=== PATIENT | female | born 1960 | race Asian ===

== ENCOUNTER 2023-12-11 18:18 | Emergency (ER) | payer OTHER ==
[~2023-12-11] VITALS: Ht 165.1 cm; Wt 70.4 kg
[2023-12-11 18:24] VITALS: O2SAT 100
[2023-12-11 19:27] LABS: BASOPHILS % 0.6 % (0.0-2.0); HEMOGLOBIN. 13.5 g/dL (12.0-16.0); LYMPHOCYTES % 14.9 % (20.0-50.0); MEAN CORPUSCULAR HGB CONC 33.9 g/dL (31.0-37.0); MEAN CORPUSCULAR VOLUME 91.4 fL (81.0-99.0); MEAN PLATELET VOLUME 7.5 fl (7.4-10.4); MONOCYTES % 3.9 % (2.0-8.0); NEUTROPHILS % 80.6 % (40.0-76.0); PLATELET 273 x1000/uL (130-400); RED BLOOD CELL COUNT 4.37 mill/uL (4.2-5.4)
[2023-12-11 19:33] LABS: CHLORIDE 108 mEq/L (98-107); POTASSIUM 3.9 mEq/L (3.5-5.1); SODIUM 138 mEq/L (136-145)
[2023-12-11 19:34] LABS: CALCIUM 9.8 mg/dL (8.7-10.4); CARBON DIOXIDE 23 mEq/L (21-32)
[2023-12-11 19:38] LABS: INR 0.9; PROTHROMBIN TIME 10.3 sec (9.6-11.0)
[2023-12-11 19:39] LABS: CREATININE 0.8 mg/dL (0.6-1.0); GLUCOSE 114 mg/dL (70-105); UREA NITROGEN BLOOD 13 mg/dL (9-23)
[2023-12-11] MEDS: LABETALOL 5MG/ML SYR 20 MG/4 ML SYRINGE IV ONE (19:43)
[2023-12-11 19:44] LABS: ETHANOL BLOOD < 10 mg/dL (<10)
[2023-12-11 19:46] LABS: CLARITY URINE CLEAR (CLEAR); COLOR URINE YELLOW (YELLOW); GLUCOSE URINE NEGATIVE (NEGATIVE); KETONES URINE NEGATIVE (NEGATIVE); LEUKOCYTE ESTERASE URINE 1+ (NEGATIVE); NITRITE URINE NEGATIVE (NEGATIVE); OCCULT BLOOD URINE NEGATIVE (NEGATIVE); PH URINE 7.5 (4.5-8.0); PROTEIN URINE NEGATIVE (NEGATIVE); SPECIFIC GRAVITY URINE 1.018 (1.005-1.030); UROBILINOGEN URINE 0.2 E.U./dL (0.2-1.0)
[2023-12-11 19:55] LABS: *AMPHETAMINES SCREEN URINE NEGATIVE (NEGATIVE); *BARBITURATES SCREEN URINE NEGATIVE (NEGATIVE); *BENZODIAZEPINES SCREEN URINE NEGATIVE (NEGATIVE); *COCAINE SCREEN URINE NEGATIVE (NEGATIVE); METHADONE URINE SCREEN NEGATIVE (NEGATIVE); OPIATES URINE SCREEN PRESUMPTIVE POSITIVE (NEGATIVE)
[2023-12-11 19:56] LABS: CANNABINOID URINE SCREEN NEGATIVE (NEGATIVE); ECSTASY MDMA SCREEN URINE NEGATIVE (NEGATIVE); PHENCYCLIDINE URINE SCREEN NEGATIVE (NEGATIVE)
[2023-12-11] MEDS: SODIUM CHLORIDE 0.9% 1,000 ML IV ONE (20:00)
[2023-12-11 20:14] LABS: BACTERIA URINE TRACE; RBC URINE 0-2 /hpf (0-2); SQUAMOUS EPITHELIAL CELL URINE FEW /lpf (RARE/1+)
[2023-12-11] MEDS: IOHEXOL-350 100 ML BOTTLE ONE (21:28)
[2023-12-11] MEDS: METOCLOPRAMIDE HCL 10MG/2ML VIAL IV ONE (21:52)
[2023-12-11] MEDS ORDERED: ATOR20TA65 MT (22:00)
[2023-12-11] MEDS ORDERED: IBUP-2028 MT (22:00)
[2023-12-11] MEDS ORDERED: ASPI-1406 MT (22:00)
[2023-12-11] MEDS ORDERED: P50 MT (22:19)
[2023-12-11 22:25] VITALS: BP 138/81; PULSE 94; RESP 20; TEMP 98.3
== END 2023-12-11 22:25 | disposition home or self-care (01) ==
LOC: EDBD 18:18 → ER 18:18 → CANBEDREQ 12-12 19:38
DX: R51.9 Headache, unspecified (principal); J45.909 Unspecified asthma, uncomplicated
CPT/HCPCS: 80305; 80048; 81003; 80320; 83605; 85025; 85610; 87040; 87086; 36415; 84145; 71045; 70496; 70498; 70450; 93005; 96361; 96374; 99291; Q9967; J2765; J7030; Z7610; G0480